=== PATIENT | female | born 1955 | race Caucasian/White ===

== ENCOUNTER → 2018-02-17 | Outpatient (CLI) | payer OTHER ==
--- NOTE | 2018-02-18 15:28 | Pulmonary Function Test ---
DATE OF STUDY: February 17, 2018 Restrictive spirometry. Forced vital capacity 2.7 liters, 77% of predicted. FEV-1 is 1.92 liters, 71% of predicted. FEV1:FVC ratio 71%. Restrictive pattern. FEF 25-75 is 62%. Diffusion capacity is preserved at 25.08, 103% of predicted. Lung volumes maneuver could not be performed. The patient could not maintain a seal on the mouthpiece during the maneuver. IMPRESSION: Restrictive pulmonary disease, which appears mild. Differential diagnosis includes muscular disease, morbid obesity, congestive heart failure, bronchopulmonary disease, pleural disease, chest wall disease, diaphragmatic disease. Clinical correlation required. Job#: [id number]
== END ==
LOC: RESP 09:54
PROVIDERS: ATTEND Psychiatry & Neurology Clinical Neurophysiology
DX: G12.20 Motor neuron disease, unspecified (principal); G12.21 Amyotrophic lateral sclerosis; R06.09 Other forms of dyspnea
CPT/HCPCS: 94010; 94727; 94729

== ENCOUNTER → 2018-05-27 | Outpatient (CLI) | payer OTHER | LOC: DX 12:51 | PROVIDERS: ATTEND Psychiatry & Neurology Clinical Neurophysiology | DX: G12.21 Amyotrophic lateral sclerosis (principal); R13.19 Other dysphagia | CPT/HCPCS: 74230 ==

== ENCOUNTER → 2018-07-30 | Day surgery (SDC) | payer OTHER ==
[~2018-07-30] MED LIST: ATORVASTATIN CA20 MG PO; FENTANYL CITRATE/PF 100MCG/2 ML INJ ONE; FOLIC ACID1 MG PO; HEPARIN SOD (PORCINE) 5,000 UNIT/ML VIAL ONE; HYDROCODONE/APAP 7.5MG-325MG 1 EA TAB ONE; LIDOCAINE HCL 1% LOCAL INJ 20 ML VIAL ONE; MELATONIN3 MG PO; MIDAZOLAM HCL 2 MG/2 ML VIAL ONE; NIFEDIPINE ER30 M1; ONDASETRON; RILUTEK50 MG; ROBINUL; SODIUM CHLORIDE 0.9% 500ML 500 ML ONE; VITAMIN C1000 MG; VITAMIN D32000 UNI1; VITAMIN E400 UNI1; [UNRECOGNIZED DRUG - OTHER]
--- OUTSIDE RECORDS SUMMARY | 2018-07-30 10:07 | XMS REPORT | Clinical Summary ---
Author Author Stuart [facility]oo Organization Stuart [facility] Address Unknown Phone Unavailable Care Team Providers Care Scudding Inspector Name Role Phone Asked, No Pcp PCP Unavailable Allergies No Known Allergies Medications End Date Status Medication Sig Dispensed Refills Start Date Active multivitamin (MULTIPLE Take 1 tablet 0 VITAMIN ESSENTIAL ORAL) by mouth. Active fexofenadine (BASHIR) Take 180 mg 0 180 MG tablet by mouth daily. Active riluzole (RILUTEK) 50 mg Take 50 mg by 0 tablet mouth every 12 (twelve) hours. 06/08/2019 Active glycopyrrolate (ROBINUL) Take 1 tablet 360 tablet 2 1 mg tabletIndications: (1 mg total) 9 Sialorrhea, ALS by mouth 4 (amyotrophic lateral (four) times sclerosis) ([facility]) a day. Active Problems Problem Noted Date Family hx of ALS (amyotrophic lateral sclerosis) 04/15/2018 ALS (amyotrophic lateral sclerosis) Muscle weakness Resolved Problems Problem Noted Date Resolved Date Cranial nerve lesion 04/15/2018 Myasthenia gravis with exacerbation 04/15/2018 Encounters Care Team Description Date Type Specialty Digna Bruner RN ALS (amyotrophic lateral sclerosis) ([facility]) (Primary Dx) 07/29/2018 Orders Only Neurology Briana Saravia MA 07/13/2018 Telephone General Surgery Jaycee Smith RN Sialorrhea (Primary Dx); ALS (amyotrophic lateral sclerosis) ([facility]) 06/08/2018 Orders Only Neurology Kati Caban MD 06/05/2018 Refill Neurology Russel Castañeda MD Familial ALS (amyotrophic lateral sclerosis) ([facility]) (Primary Dx) 04/15/2018 Procedure visit Neurology Pb Mancera, PhD Memory loss; Motor neuron disease ([facility]) 04/14/2018 Office Visit Neuropsychology Russel Castañeda MD Familial ALS (amyotrophic lateral sclerosis) ([facility]) (Primary Dx) 04/14/2018 Procedure visit Neurology Karolyn Pleitez 04/14/2018 Documentation Karolyn Pleitez 04/14/2018 Documentation Russel Castañeda MD 04/13/2018 Hospital Sleep Medicine Encounter Russel Castañeda MD Familial ALS (amyotrophic lateral sclerosis) (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); Dyspnea, unspecified type; Dysarthria; Oropharyngeal dysphagia 04/13/2018 Procedure visit Neurology Russel Castañeda MD Familial ALS (amyotrophic lateral sclerosis) ([facility]) 04/13/2018 Hospital Pulmonology Encounter Alaina Arboleda Amyotrophic lateral sclerosis ([facility]) (Primary Dx) 04/13/2018 Transcribe Sleep Medicine Orders Farrah Fermin, TEXTILE COLORIST FORMULATOR 04/13/2018 Social Work Neurology Farrah Fermin, TEXTILE COLORIST FORMULATOR 04/08/2018 Telephone Neurology Jaycee Smith RN Familial ALS (amyotrophic lateral sclerosis) (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); Dyspnea, unspecified type; Dysarthria; Oropharyngeal dysphagia 04/02/2018 Orders Only Neurology after 07/29/2017 Immunizations Name Dates Previously Given Next Due Pneumococcal Conjugate 04/15/2018 13-[facility]ent Social History Date Tobacco Use Types Packs/Day Years Used Never Assessed Sex Assigned at Date Recorded Not on file Industry Job Start Date Occupation Not on file Not on file Not on file Travel End Travel History Travel Start No recent travel history available. Last Filed Vital Signs Time Taken Vital Sign Reading 04/15/2018 8:23 AM PERSONNEL ADVISER Blood Pressure 166/73 04/15/2018 11:00 AM PERSONNEL ADVISER Pulse 58 04/15/2018 8:23 AM PERSONNEL ADVISER Temperature 37.1 C (98.7 F) 04/15/2018 8:23 AM PERSONNEL ADVISER Respiratory Rate 16 04/15/2018 8:23 AM PERSONNEL ADVISER Oxygen Saturation 100% - Inhaled Oxygen - Concentration 04/13/2018 8:12 AM PERSONNEL ADVISER Weight 64.9 kg (143 lb 1.6 oz) 04/13/2018 8:12 AM PERSONNEL ADVISER Height 167.6 cm (5' 6") 04/13/2018 8:12 AM PERSONNEL ADVISER Body Mass Index 23.1 Plan of Treatment Care Team Description Date Type Specialty Digna Bruner RN 08/06/2018 Multidisciplina Neurology ry Visit Health Maintenance Due Date Last Done Comments CERVICAL CANCER SCREENING 1977 BREAST CANCER SCREENING 2006 COLON CANCER SCREENING 2006 SHINGLES VACCINES (#1) 2006 INFLUENZA VACCINE Completed 03/14/2018 Procedures Comments Procedure Name Priority Date/Time Associated Diagnosis GENERAL SLEEP STUDY Routine 04/14/2018 Amyotrophic lateral 1:18 PM PERSONNEL ADVISER sclerosis (HCC) EMG Routine 04/13/2018 Familial ALS (amyotrophic 1:04 PM PERSONNEL ADVISER lateral sclerosis) (HCC) 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) (HCC) Dyspnea, unspecified type Dysarthria Oropharyngeal dysphagia CRP HIGH SENSITIVITY Routine 04/13/2018 7:22 AM PERSONNEL ADVISER ESTIMATED GFR Routine 04/13/2018 7:22 AM PERSONNEL ADVISER BASIC METABOLIC PANEL Routine 04/13/2018 Familial ALS (amyotrophic 7:22 AM PERSONNEL ADVISER lateral sclerosis) (HCC) 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) (HCC) Dyspnea, unspecified type Dysarthria Oropharyngeal dysphagia HC COMPLETE BLD COUNT Routine 04/13/2018 Familial ALS (amyotrophic W/AUTO DIFF 7:22 AM PERSONNEL ADVISER lateral sclerosis) (HCC) 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) (HCC) Dyspnea, unspecified type Dysarthria Oropharyngeal dysphagia CREATINE KINASE, TOTAL Routine 04/13/2018 Familial ALS (amyotrophic (CPK) 7:22 AM PERSONNEL ADVISER lateral sclerosis) (HCC) 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) (HCC) Dyspnea, unspecified type Dysarthria Oropharyngeal dysphagia FOLATE LEVEL Routine 04/13/2018 Familial ALS (amyotrophic 7:22 AM PERSONNEL ADVISER lateral sclerosis) (HCC) 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) (HCC) Dyspnea, unspecified type Dysarthria Oropharyngeal dysphagia HEPATIC FUNCTION PANEL Routine 04/13/2018 Familial ALS (amyotrophic 7:22 AM PERSONNEL ADVISER lateral sclerosis) (HCC) 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) (HCC) Dyspnea, unspecified type Dysarthria Oropharyngeal dysphagia PROTHROMBIN TIME WITH INR Routine 04/13/2018 Familial ALS (amyotrophic 7:22 AM PERSONNEL ADVISER lateral sclerosis) (HCC) 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) (HCC) Dyspnea, unspecified type Dysarthria Oropharyngeal dysphagia RHEUMATOID FACTOR Routine 04/13/2018 Familial ALS (amyotrophic 7:22 AM PERSONNEL ADVISER lateral sclerosis) (HCC) 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) Dyspnea, unspecified type Dysarthria Oropharyngeal dysphagia THYROID STIMULATING Routine 04/13/2018 Familial ALS (amyotrophic HORMONE 7:22 AM PERSONNEL ADVISER lateral sclerosis) (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) Dyspnea, unspecified type Dysarthria Oropharyngeal dysphagia VITAMIN D 25 HYDROXY Routine 04/13/2018 Familial ALS (amyotrophic LEVEL 7:22 AM PERSONNEL ADVISER lateral sclerosis) (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) Dyspnea, unspecified type Dysarthria Oropharyngeal dysphagia VITAMIN B12 LEVEL Routine 04/13/2018 Familial ALS (amyotrophic 7:22 AM PERSONNEL ADVISER lateral sclerosis) (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) Dyspnea, unspecified type Dysarthria Oropharyngeal dysphagia HIV AG/AB COMBINATION Routine 04/13/2018 Familial ALS (amyotrophic 7:22 AM PERSONNEL ADVISER lateral sclerosis) (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) Dyspnea, unspecified type Dysarthria Oropharyngeal dysphagia SPIROMETRY, MIPS/MEPS Routine 04/13/2018 Familial ALS (amyotrophic 7:21 AM PERSONNEL ADVISER lateral sclerosis) ([facility]) after 07/29/2017 Results * General sleep study (04/14/2018 1:18 PM PERSONNEL ADVISER) Narrative Performed At * EMG general request (04/13/2018 1:04 PM PERSONNEL ADVISER) Impressions Performed At Ms. Grissom complains of progressive dysarthria, weakness in her left arm and diffuse muscle twitching. Ms. Grissom is being evaluated for motor neuron disease. 1) Left median, ulnar and bilateral phrenic, peroneal and tibial motor latencies, amplitudes and velocities are normal. 2) Repetitive stimulations are normal, as noted above. 3) Left median palmar, median digital, ulnar and bilateral sural sensory responses are normal. 4) Intramuscular recordings of the left arm, bilateral legs, bilateral thoracic paraspinous (level T3-T11) and tongue (genioglossus) muscles suggest acute and chronic denervation as noted above. 5) Intramuscular recordings of the bilateral diaphragm are normal, without denervation. The study suggests diffuse motor neuron disease. Ayo Felix M.D. Narrative Performed At NERVE CONDUCTION AND ELECTROMYOGRAPHY REPORT Neurological [place], [facility]; [place], [place] [address]; Name: Ana Rosa Grissom Date of Procedure: April 13, 2018Location: Sex: Female Date of :57 Referring Physician: Russel Castañeda M.D. FAX: Patient is 5 6 ; 142 lbs.; RL 30.0 C; LA 34.3 C; LL 30.0 C\\ Nerve Conduction(Latencies in msec, Amp. (Motor mV; Sensory uV, Dist. cm, Velocity Right Motor NervesDist. Lat. Prox lat. D. amp. P. Amp. Dist. Velocity Right Peroneal4.311.36.1 5.633.4 47.1 Right Tibial4.412.612.0 9.838.7 47.3 Right Phrenic6.81.0 Right Sensory Nerves Dist. Lat. Prox lat. Dist. amp. Prox Amp. Distance Velocity Right Sural3.9 22.7 14.0 Left Motor Nerves Dist. Lat. Prox lat. D. amp. P. Amp.Dist. Velocity Left Median3.97.84.7 4.020.7 54.0 Left Ulnar (below elb) 2.75.76.1 6.115.0 50.0 Left Peroneal3.811.33.2 2.334.8 46.4 Left Tibial4.013.410.7 8.638.2 40.5 Left Phrenic6.71.0 Left Sensory Nerves Dist. Lat. Prox lat. Dist. amp. Prox Amp. Distance Velocity Left Median Palmar 2.0 140.0 8.0 Left Median Digital 2.8 38.3 13.0 Left Ulnar2.5 27.3 11.0 Left Sural3.8 16.3 14.0 Electromyography (Motor Unit in mV; H=High; L=Low; P=Polyphasic; NS=Non-specific) Right LegFibs. Pos. Waves Fasc. PolyphasiaMotor UnitsRecruitment Vas. Medialiswnl wnlwnl wnlwnlNS Ant. TibialisR Rwnl 20HPwnl-1 Peroneus Longus R Rwnl 20HPwnl-1 Gastronemiuswnl wnlwnl wnlwnlwnl Ext. Dig. Brevis R Rwnl 20HPwnl-1 Left ArmFibs. Pos. Waves Fasc. PolyphasiaMotor UnitsRecruitment Deltoid R Rwnl 20HPwnlNS Biceps R Rwnl 20HPwnl-1 Triceps R Rwnl 20HPwnl-1 Brachioradialis 1 1wnl 30HPwnl-2 Ext. Dig. Comm. 1 1wnl 30HPwnl-2 lst D. Interosseous 1 1wnl 30HPwnl-2 DiaphragmFibs. Pos. Waves Fasc. PolyphasiaMotor Units RecruitmentRight wnl wnlwnl wnlwnlwnl Left wnl wnlwnl wnlwnlwnl Left LegFibs. Pos. Waves Fasc. PolyphasiaMotor UnitsRecruitment Vas. Medialiswnl wnlwnl wnlwnlNS Ant. TibialisR Rwnl 20HPwnl-1 Peroneus Longus R Rwnl 20HPwnl-1 Gastronemiuswnl wnlwnl wnlwnlwnl Ext. Dig. Brevis R Rwnl 20HPwnl-1 Thoracic Paraspinous (T3-T11 level): Right: R Rwnl wnlwnlwnl Left: R Rwnl wnlwnlwnl Genioglossus (tongue): Left: 1 1wnl wnlwnl-2 Repetitive stimulations: Repetitive stimulations at 3 Hz. of the left ulnar nerve (recording from ADM), before and after exercise, are normal, without significant increment or decrement in the response: At rest: 5.2% increment; immediately post-exercise: 7.6% increment; one minute post-exercise: 8.6% increment; two minutes post-exercise: 5.4% increment; three minutes post-exercise: 4.4% increment. Repetitive stimulations at 3 Hz. of the left XI nerve (recording from trapezius), before and after exercise, are normal, without significant increment or decrement in the response: At rest: 2.4% increment; immediately post-exercise: 4.0% decrement; one minute post-exercise: 5.7% decrement; two minutes post-exercise: 2.5% decrement; three minutes post-exercise: 9.0% decrement. * Syphilis treponemal IgG (04/13/2018 7:22 AM PERSONNEL ADVISER) Syphilis treponemal IgG Non-reactiveComment: Non-reactive [facility] Non-reactive: No serological HOSPITAL evidence of Syphilis infection Specimen Serum Performing Organization Address [facility] [place], [place] Phone Number [facility] [place] [address] PATHOLOGY AND [facility] MEDICINE [address] * Estimated GFR (04/13/2018 7:22 AM PERSONNEL ADVISER) Estimated GFR 76 mL/min/1.73 m2 [facility] Comment: HOSPITAL CatergoryUnitsInte rpretation G1 >=90 Normal or high G2 60-89Mildly decreased [id number] Mildly to moderately decreased [id number] Moderately to severely decreased G4 15-29Severely decreased G5 <15Kidney failure The eGFR was calculated using the Chronic Kidney Disease Epidemiology Collaboration (CKD-EPI) equation. Interpretation is based on recommendations of the National Kidney Foundation-Kidney Disease Outcomes Quality Initiative (NKF-KDOQI) published in 2014. Specimen Plasma specimen Performing Organization Address City/[facility] Phone Number [facility] [place] [address] PATHOLOGY AND [facility] [address] * HIV Ag/Ab combination (04/13/2018 7:22 AM PERSONNEL ADVISER) HIV Ag/Ab combination Non-reactive Non-reactive [facility] Specimen Blood Performing Organization Address [facility] Phone Number [facility] [place] [address] PATHOLOGY AND GENOMIC MEDICINE [address] * HTLV I/II Ab with reflex to confirmation (04/13/2018 7:22 AM PERSONNEL ADVISER) HTLV I/II Ab Negative Negative [facility] Comment: Based on the non-reactive anti-HTLV JACE screen, the HTLV Western Blot is not indicated and therefore not performed. INTERPRETIVE INFORMATION:HTLV I/II Antibodies w/Reflex to Confirm This assay should not be used for blood donor screening, associated re-entry protocols, or for screening Human Cell, Tissues and Cellular and Tissue-Based Products (HCT/P). Performed by [facility], [address] [place] [address] [email or web address], Bentley Sheffield MD - Lab. Director Specimen Serum Performing Organization Address [facility] Phone Number [facility] [address] [place] [address] [facility] [address] [place] [address] * B. burgdorferi Abs total, serum (04/13/2018 7:22 AM PERSONNEL ADVISER) B. burgdorferi antibodies 0.61 0.00 - 1.20 [facility] Comment: INTERPRETIVE INFORMATION: Borrelia Burgdorferi Abs,Total by JACE 0.99 CHELSIE or Less: ...... Negative: Antibody to B. burgdorferi not detected. 1.00 - 1.20 CHELSIE......... Equivocal: Repeat testing in 10-14 days may be helpful. 1.21 CHELSIE or Greater: ... Positive: Probable presence of antibody to B. burgdorferi detected. Performed by [facility], [address] [place] [address] [email or web address], Bentley Sheffield MD - Lab. Director Specimen Serum Performing Organization Address [facility] Phone Number [facility] [address] [facility] [address] [place] [address] * Vitamin D 25 hydroxy level (04/13/2018 7:22 AM PERSONNEL ADVISER) Vitamin D, 25-hydroxy 28.0 (L) 30.0 - 150.0 ng/mL [facility] Comment: HOSPITAL This assay reports the sum of 25-hydroxy vitamin D3 and 25-hydroxy vitamin D2. Reference range: 0-17 years: Deficiency: less than 20ng/mL Optimum level: greater than or equal to 20 ng/mL. 18 years and older: Deficiency: less than 20ng/mL Insufficiency: 20-29 ng/mL Optimum Level: 30-80 ng/mL The assay reportable range is 3.4155.9 ng/mL. Levels higher than 150 ng/mL may be associated with toxicity. If toxicity is clinically suspected and the reported result is >155.9 ng/mL,contact lab for alternative methods to obtain a definitivelevel. If separate quantitation of 25-hydroxy vitamin D3 and 25-hydroxy vitamin D2 is needed, please contact lab for alternative methods. Specimen Blood Performing Organization Address [facility]/Zipcode Phone Number [facility] DEPARTMENT OF [address] [place] [address] PATHOLOGY AND GENOMIC MEDICINE [address] * Partial thromboplastin time, activated (04/13/2018 7:22 AM PERSONNEL ADVISER) PTT 31.2 23.0 - 36.0 sec [facility] Comment: [facility] PTT therapeutic range for unfractionated heparin is 61.0-112.0 seconds which corresponds to Anti-Xa 0.3-0.7 U/ml. Specimen Blood Performing Organization Address [facility] Phone Number [facility] [place] [place] [address] PATHOLOGY AND [facility] [address] * Prothrombin time with INR (04/13/2018 7:22 AM PERSONNEL ADVISER) Prothrombin time 12.6 11.5 - 14.5 sec [facility] INR 1.0 [facility] Comment: [facility] The International Normalized Ratio (INR) is a therapeutic monitoring tool for patients who are stable on oral anticoagulant therapy. An INR of 2.0-3.0 is suggested for deep vein thrombosis/pulmonary embolism. Specimen Blood Performing Organization Address [facility]/Zipcode Phone Number [facility] [place] [place] [address] PATHOLOGY AND [facility] [address] * CBC with platelet and differential (04/13/2018 7:22 AM PERSONNEL ADVISER) WBC 4.29 (L) 4.50 - 11.00 k/uL [facility] RBC 4.54 4.20 - 5.50 m/uL [facility] HGB 13.6 12.0 - 16.0 g/dL [facility] HCT 42.4 37.0 - 47.0 % [facility] MCV 93.4 82.0 - 100.0 fL [facility] MCH 30.0 27.0 - 34.0 pg [facility] MCHC 32.1 31.0 - 37.0 g/dL [facility] RDW - SD 45.4 37.0 - 55.0 fL [facility] MPV 11.3 8.8 - 13.2 fL [facility] Platelet count 217 150 - 400 k/uL [facility] Nucleated RBC 0.00 /100 WBC [facility] Neutrophils 59.5 39.0 - 69.0 % [facility] Lymphocytes 30.5 25.0 - 45.0 % [facility] Monocytes 7.7 0.0 - 10.0 % [facility] Eosinophils 1.4 0.0 - 5.0 % [facility] Basophils 0.7 0.0 - 1.0 % [facility] Immature granulocytes 0.2Comment: "Immature 0.0 - 1.0 % [facility] granulocytes" (promyelocytes, HOSPITAL myelocytes, metamyelocytes) Specimen Blood Performing Organization Address City/[facility] [place] [address] PATHOLOGY AND GENOMIC MEDICINE [address] * Rheumatoid factor (04/13/2018 7:22 AM PERSONNEL ADVISER) Rheumatoid factor <10 0 - 13 IU/mL [facility] Specimen Plasma specimen Performing Organization Address City/[facility] [place] [address] PATHOLOGY AND GENOMIC MEDICINE [address] * CRP high sensitivity (04/13/2018 7:22 AM PERSONNEL ADVISER) CRP, high sensitivity 1.04 mg/L [facility] Comment: HOSPITAL Please note this test is different from the C-Reactive Protein (CRP) assay. CRP is a nonspecific marker of inflammation and its levels rise in the presence of conditions such as infection and inflammatory disorders. Persistent low levels of CRP can be measured with a high-sensitivity assay (hsCRP) andare associated with increased risks for atherosclerotic diseases. High-Sensitivity CRP (hsCRP) results are used to assign risk for stroke, acute myocardial infarction and peripheral vascular disease as follows: Low risk: < 1.00 mg/L Average risk: 1.00 - 3.00 mg/L High risk: > 3.00 - 10.00 mg/L Indeterminate: > 10.00 mg/L * *May be indicative of another source of inflammation or infection Specimen Plasma specimen Performing Organization Address City/[facility] Phone Number [facility] [place] [address] PATHOLOGY AND GENOMIC MEDICINE [address] * Thyroid stimulating hormone (04/13/2018 7:22 AM PERSONNEL ADVISER) TSH 4.21 (H) 0.27 - 4.20 uIU/mL [facility] Specimen Plasma specimen Performing Organization Address [facility] [place] [place] Phone Number [facility] [place] [address] PATHOLOGY AND GENOMIC MEDICINE [address] * Serum electrophoresis (04/13/2018 7:22 AM PERSONNEL ADVISER) Protein 7.0 6.3 - 8.3 g/dL [facility] Comment: HOSPITAL 4.6-7.0 g/dL 1 week 4.4-7.6 g/dL 7 months-1year 5.1-7.3 g/dL 1-2 years5.6-7 .5 g/dL >3 years6.0-8 .0 g/dL 18-150 6.3-8.3 g/dL SPE albumin 4.82 4.00 - 5.30 g/dL [facility] SPE alpha 1 0.15 0.10 - 0.25 g/dL [facility] SPE alpha 2 0.67 0.58 - 0.84 g/dL [facility] SPE beta 0.72 0.50 - 1.10 g/dL [facility] SPE gamma 0.63 0.60 - 1.30 g/dL [facility] SPE extended See CommentComment: A normal [facility] interpretation serum protein study. [facility] SPE interpretation See CommentComment: Lori [facility] Fiore MD; [facility] [place], PhD; Giovanni Jennings MD, PhD Specimen Serum Performing Organization Address City/[facility] Phone Number [facility] [place] [address] PATHOLOGY AND GENOMIC MEDICINE [address] * Folate level (04/13/2018 7:22 AM PERSONNEL ADVISER) Folate >20.0 4.8 - 24.2 ng/mL [facility] Specimen Serum Performing Organization Address City/[facility] Phone Number [facility] [place] [address] PATHOLOGY AND GENOMIC MEDICINE [address] * Vitamin B12 level (04/13/2018 7:22 AM PERSONNEL ADVISER) Vitamin B12 478 211 - 946 pg/mL [facility] Comment: HOSPITAL Significant overlap exists between normal and deficiency states. However, most patients with deficiencies will have Serum B12 <200 pg/mL. Specimen Serum Performing Organization Address [facility] Phone Number [facility] [place] [address] PATHOLOGY AND GENOMIC MEDICINE [address] * Creatine kinase, total (CPK) (04/13/2018 7:22 AM PERSONNEL ADVISER) Creatine kinase 69 26 - 192 U/L [facility] Specimen Plasma specimen Performing Organization Address City/[facility] [place] [place] Phone Number [facility] [place] [address] PATHOLOGY AND GENOMIC MEDICINE [address] * Hepatic function panel (04/13/2018 7:22 AM PERSONNEL ADVISER) Albumin 4.1 3.5 - 5.0 g/dL [facility] Total bilirubin 0.4 0.0 - 1.2 mg/dL [facility] Bilirubin direct <0.2 0.0 - 0.3 mg/dL [facility] Alkaline phosphatase 95 35 - 104 U/L [facility] Protein 7.4 6.3 - 8.3 g/dL [facility] Comment: HOSPITAL [place] 4.6-7.0 g/dL 1 week 4.4-7.6 g/dL 7 months-1year 5.1-7.3 g/dL 1-2 years5.6-7 .5 g/dL >3 years6.0-8 .0 g/dL 18-150 6.3-8.3 g/dL ALT 19 5 - 50 U/L [facility] AST 24 10 - 35 U/L [facility] Specimen Plasma specimen Performing Organization Address [facility] Phone Number [facility] DEPARTMENT OF [address] [place] [address] PATHOLOGY AND GENOMIC MEDICINE [address] * Lipid panel (04/13/2018 7:22 AM PERSONNEL ADVISER) Cholesterol 227 (H) <200 mg/dL [facility] Triglycerides 99 <150 mg/dL [facility] HDL cholesterol 61 >40 mg/dL [facility] LDL cholesterol 161 (H)Comment: Result <100 mg/dL [facility] obtained by direct [facility] measurement Lipid panel SeeBelow [facility] interpretation Comment: HOSPITAL Total Cholesterol (mg/dL) <200 Desirable 200-239Borderline -high >=240High Triglycerides (mg/dL) <150 Normal 150-199Borderline -high 200-499High >=500Very high HDL Cholesterol (mg/dL) <40Low (male) <40Low (female) LDL Cholesterol (mg/dL) <100 Optimal 100-129Near or above optimal 130-159Borderline -high 160-189High >=190Very high Risk Catergories that modify LDL goals. Risk Catergories LDL goal (mg/dL) CHD and CHD risk equivalent<100 (10-year risk >20%) Multiple (2+) risk factors <130 (10-year risk=<20%) 0-1 risk factors <160 (<10-year risk) Defining levels of lipids in metabolic syndrome Triglycerides >=150 mg/dL HDL Cholesterol Men <40 mg/dL Women <40 mg/dL Non-HDL cholesterol is a second target for therapy in persons with high triglycerides (>=200 mg/dL) Specimen Plasma specimen Performing Organization Address City/[facility] Phone Number [facility] DEPARTMENT OF [address] [place] [address] PATHOLOGY AND GENOMIC MEDICINE [place] [id number] [address] * Basic metabolic panel (04/13/2018 7:22 AM PERSONNEL ADVISER) Sodium 142 135 - 148 mEq/L [facility] Potassium 4.1 3.5 - 5.0 mEq/L [facility] Chloride 106 98 - 112 mEq/L [facility] CO2 21 (L) 24 - 31 mEq/L [facility] Anion gap 15@ANIO 7 - 15 mEq/L [facility] BUN 11 8 - 23 mg/dL [facility] Creatinine 0.83 0.50 - 0.90 mg/dL [facility] Glucose 101 (H) 65 - 99 mg/dL [facility] Calcium 10.2 8.8 - 10.2 mg/dL [facility] Specimen Plasma specimen Performing Organization Address City/State/Zipcode Phone Number [facility] DEPARTMENT OF [address] [place] [address] PATHOLOGY AND GENOMIC MEDICINE [address] * Spirometry, MIPS/MEPS (04/13/2018 7:21 AM PERSONNEL ADVISER) FEV1 Pre 2.17 2.02 - 3.23 L [facility] FEV1/FVC % Pre 60.81 68.05 - 87.64 % [facility] FVC Pre 3.56 2.69 - 4.11 L [facility] PEF Pre 3.21 4.63 - 8.16 L/s [facility] FEF 25-75% Pre 1.06 1.09 - 3.64 L/s [facility] FEV1 Predicted 2.62 [facility] FEV1 LLN 2.02 [facility] FEV1 % Pre of Predicted 82.5 % [facility] FVC Predicted 3.40 [facility] FVC LLN 2.69 [facility] FVC % Pre of Predicted 104.7 % [facility] FEV1/FVC % Predicted 78 [facility] FEV1/FVC % LLN 68 [facility] FEV1/FVC % Pre of 78.1 % [facility] Predicted FEF 25-75% Predicted 2.36 [facility] FEF 25-75% LLN 1.09 [facility] FEF 25-75% % Pre of 44.6 % [facility] Predicted PEF Predicted 6.39 [facility] PEF LLN 4.63 [facility] PEF % Pre of Predicted 50.2 % [facility] MIP Predicted 55.51 [facility] MIP LLN 24.88 [facility] MEP Predicted 69.52 [facility] MEP LLN 25.12 [facility] MVV Predicted 96 [facility] MVV LLN 81 [facility] Narrative Performed At Performing Organization Address City/State/Zipcode Phone Number [facility] [address] [place] [address] after 07/29/2017 Insurance Payer Benefit Subscriber ID Type Phone Address Plan / Group AETNA AETNA xxxxxxxxxx HMO HMO,POS,EP O, MC/EC Advance Directives Patient has advance care planning documents on file. For more information, molina ramon contact: Theo Saunders [phone] [place] [address]
--- OUTSIDE RECORDS SUMMARY | 2018-07-30 10:07 | XMS REPORT ---
Author Author [facility] Address Unknown Phone Unavailable Care Team Providers Care Bag Cutter Name Role Phone FRANKLYN TOLBERT Unavailable Unavailable Payers Payer Name Policy Type Policy Number Effective Date Expiration Date Problems This patient has no known problems. Allergies, Adverse Reactions, Alerts This patient has no known allergies or adverse reactions. Medications This patient has no known medications. Results Test Description Test Time Test Comments Text Results Atomic Results Result Comments MODIFIED BA. SWALLOW 2018-05-31 09:04:00 [place] [address] Patient Name: NAN BOLDEN MR #: [id number] : 1955 Age/Sex: 62/F Req #: [id number] [facility] Physician: Ordered by: FRANKLYN TOLBERT MD Report #: [id number] Location: DX Room/Bed: Procedure: [id number] DX/MODIFIED BA. SWALLOW Exam Date: 05/27/18 Exam Time: 1300 REPORT STATUS: Signed MODIFIED BARIUM SWALLOW Reason for examination: A LS. Dysphagia. Comparison: None DISCUSSION: This examination was conducted in conjunction with speech pathologist. Patient was given, by mouth, numerous consistencies of barium. Anterior spillage with all liquid trials, anterior spillage after swallow, poor saliva management. Slow mastication. Laryngeal penetration with large cup sip only. Unable to draw from straw. No aspiration seen. Fluoro Time: 1.3 minutes DAP: 1.61 Gy*cm IMPRESSION: Episodes of penetration. Please see speech pathology report for detailed description and recommendations. Signed by: Dr. Abel Moore M.D. on 05/31/2018 9:09 AM Dictated By: ABEL MOORE MD, MD 8 Transcribed By: ECHO on 05/31/18908 COPY TO: FRANKLYN TOLBERT MD
[2018-07-30 11:04] LABS: BASOPHILS % 0.6 % (0.0-1.0); EOSINOPHILS # (AUTO) 0.1 (0.0-0.4); EOSINOPHILS % 1.3 % (0.0-6.0); HEMATOCRIT 39.3 % (34.2-44.1); HEMOGLOBIN 12.9 g/dL (12.0-16.0); LYMPHOCYTES # (AUTO) 1.5 (1.0-3.2); LYMPHOCYTES % 33.1 % (18.0-39.1); MEAN CORPUSCULAR HEMOGLOBIN 30.9 pg (28-32); MEAN CORPUSCULAR HGB CONC 32.8 g/dL (31-35); MONOCYTES # (AUTO) 0.3 (0.2-0.8); MONOCYTES % 6.5 % (4.4-11.3); NEUTROPHILS # (AUTO) 2.7 (2.1-6.9); NEUTROPHILS % 58.3 % (38.7-80.0); PLATELET COUNT 244 x10e3/uL (140-360); RED BLOOD COUNT 4.18 x10e6/uL (3.6-5.1); RED CELL DISTRIBUTION WIDTH 12.5 % (11.7-14.4)
[2018-07-30 11:32] LABS: BLOOD UREA NITROGEN 12 mg/dL (7-26); BUN/CREATININE RATIO 16 (6-25); CALCIUM 9.5 mg/dL (8.4-10.2); CARBON DIOXIDE 22 mmol/L (22-29); CHLORIDE 112 mmol/L (98-107); CREATININE, SERUM 0.77 mg/dL (0.57-1.11); EST GLOMERULAR FILTRATION RATE > 60 ML/MIN (60-); GLUCOSE 97 mg/dL (74-118); SODIUM 141 mmol/L (136-145)
--- NOTE | 2018-07-30 11:37 | Diagnostic Imaging Report ---
EXAMINATION: CHEST 2 VIEWS INDICATION: Pre-op. COMPARISON: None FINDINGS: TUBES and LINES: None. LUNGS: Lungs are well inflated. Lungs are clear. There is no evidence of pneumonia or pulmonary edema. PLEURA: No pleural effusion or pneumothorax. HEART AND MEDIASTINUM: The cardiomediastinal silhouette is unremarkable. BONES AND SOFT TISSUES: No acute osseous lesion. Soft tissues are unremarkable. UPPER ABDOMEN: No free air under the diaphragm. IMPRESSION: No acute radiographic abnormality. Signed by: Dr. Amber Patel MD on 07/30/2018 11:33 AM
[2018-07-30 14:45] VITALS: BP 120/78
--- NOTE | 2018-07-30 15:52 | Operative Report ---
DATE OF PROCEDURE: 07/30/2018 SURGEON: Ronni Quintanilla MD PREOPERATIVE DIAGNOSIS: Amyotrophic lateral sclerosis with need of IV access. POSTOPERATIVE DIAGNOSIS: Amyotrophic lateral sclerosis with need of IV access. OPERATION PERFORMED: Placement of left subclavian venous access port under C-arm guidance. ANESTHESIA: Local 1% Xylocaine and MAC. COMPLICATIONS: None. ESTIMATED BLOOD LOSS: Minimal. DESCRIPTION OF PROCEDURE: With the patient lying in bed in the supine position under good IV sedation, the left chest and neck were prepped with Betadine solution and draped in the usual manner. The patient was placed in the Trendelenburg position and the subclavian region was infiltrated with 1% Xylocaine solution. Standard left subclavian venipuncture was performed without any difficulty and a guidewire was advanced into the central venous position. Using the C-arm, the tip of the guidewire was confirmed to be at the level of the superior vena cava and the left lung was fully expanded. A pocket was then created in the left anterior chest to accept the reservoir and the catheter was then threaded to the subclavian position. The reservoir was anchored to the anterior chest wall with interrupted sutures of 2-0 silk and the reservoir and catheter were fully heparinized and the catheter was cut to the appropriate length. The peel-away sheath introducer was then placed over the guidewire. The guidewire was removed and the catheter was threaded into central venous position. The peel-away sheath was then removed. There was good blood return and the reservoir and catheter were then fully heparinized. Using the C-arm, the left lung was found to be fully expanded and the tip of the catheter was at the level of the superior vena cava. The wounds were then closed in layers. The subcutaneous tissue was approximated with 3-0 and 4-0 Vicryl and the skin was closed with subcuticular 5-0 Vicryl. Benzoin, Steri-Strips and dressings were applied. The sponge, lap, and needle count was correct. The patient tolerated the procedures well and returned to the recovery room in stable condition. MD NOEL Field/MODL /[id number]
== END | disposition home or self-care (01) ==
LOC: OR 10:02
PROVIDERS: ATTEND Surgery
DX: G12.21 Amyotrophic lateral sclerosis (principal); Z45.2 Encounter for adjustment and management of vascular access device; I10 Essential (primary) hypertension; Z87.891 Personal history of nicotine dependence
CPT/HCPCS: 36561; C1751; 36415; 71046; 77001; 80048; 85025; 93005; J1644; J2001; J2250; J7040

== ENCOUNTER 2018-10-27 06:06 | Observation (INO) | payer OTHER ==
[~2018-10-27] VITALS: Ht 167.6 cm; Wt 55.5 kg
[~2018-10-27 06:06] MED LIST changes: -FENTANYL CITRATE/PF 100MCG/2 ML INJ ONE; -HEPARIN SOD (PORCINE) 5,000 UNIT/ML VIAL ONE; -HYDROCODONE/APAP 7.5MG-325MG 1 EA TAB ONE; -LIDOCAINE HCL 1% LOCAL INJ 20 ML VIAL ONE; -MIDAZOLAM HCL 2 MG/2 ML VIAL ONE; -SODIUM CHLORIDE 0.9% 500ML 500 ML ONE; -[UNRECOGNIZED DRUG - OTHER]; +[UNRECOGNIZED DRUG - OTHER] IV
--- OUTSIDE RECORDS SUMMARY | 2018-10-27 06:09 | XMS REPORT | Clinical Summary ---
Author Author [facility] Organization [facility] Address Unknown Phone Unavailable Care Team Providers Care Lawn Service Manager Name Role Phone Asked, No Pcp PCP Unavailable Allergies No Known Allergies Medications End Date Status Medication Sig Dispensed Refills Start Date Active fexofenadine (BASHIR) Take 180 mg 0 180 MG tablet by mouth daily. 06/08/2019 Active glycopyrrolate (ROBINUL) Take 1 tablet 360 tablet 2 1 mg tabletIndications: (1 mg total) 9 Sialorrhea, ALS by mouth 4 (amyotrophic lateral (four) times sclerosis) (HCC) a day. Active atorvastatin (LIPITOR) 40 TK 1 T PO HS 3 MG tablet 9 Active NIFEdipine XL (PROCARDIA TK 1 T PO HS 3 XL) 30 MG 24 hr tablet 9 Active ondansetron (ZOFRAN) 4 MG TK 2 TS PO Q 1 tablet 6 TO 8 H PRF 9 NAUSEA Active melatonin 10 mg capsule Take by 0 mouth. Active FOLIC ACID ORAL Take 8 mg by 0 mouth 2 (two) times a day. Active cholecalciferol, vitamin Take 2,000 0 D3, (VITAMIN D3) 1,000 Units by unit capsule mouth daily. Active ascorbic acid, vitamin C, Take 1,000 mg 0 (vitamin C) 1000 MG by mouth 2 tablet (two) times a day. Active riluzole (RILUTEK) 50 mg Take 50 mg by 0 tablet mouth every 12 (twelve) hours. 08/06/2018 Discontinued multivitamin (MULTIPLE Take 1 tablet 0 VITAMIN ESSENTIAL ORAL) by mouth. 08/06/2018 Discontinued riluzole (RILUTEK) 50 mg Take 50 mg by 0 tablet mouth every 12 (twelve) hours. Active Problems Problem Noted Date Family hx of ALS (amyotrophic lateral sclerosis) 04/15/2018 ALS (amyotrophic lateral sclerosis) Muscle weakness Resolved Problems Problem Noted Date Resolved Date Cranial nerve lesion 04/15/2018 Myasthenia gravis with exacerbation 04/15/2018 Encounters Care Team Description Date Type Specialty Russel Castañeda MD ALS (amyotrophic lateral sclerosis) ([facility]) 08/06/2018 Lab Lab Russel Castañeda MD Toennis, Karen, RN ALS (amyotrophic lateral sclerosis) ([facility]) (Primary Dx) 08/06/2018 Multidisciplina Neurology ry Visit Digna Bruner RN ALS (amyotrophic lateral sclerosis) ([facility]) (Primary Dx) 07/29/2018 Orders Only Neurology Briana Saravia MA 07/13/2018 Telephone General Surgery Jaycee Smith RN Sialorrhea (Primary Dx); ALS (amyotrophic lateral sclerosis) ([facility]) 06/08/2018 Orders Only Neurology Kati Caban MD 06/05/2018 Refill Neurology Russel Castañeda MD Familial ALS (amyotrophic lateral sclerosis) ([facility]) (Primary Dx) 04/15/2018 Procedure visit Neurology Pb Mancera, PhD Memory loss; Motor neuron disease ([facility]) 04/14/2018 Office Visit Neuropsychology Russel Castañeda MD Familial ALS (amyotrophic lateral sclerosis) ([facility]) (Primary Dx) 04/14/2018 Procedure visit Neurology Karolyn Pleitez 04/14/2018 Documentation Karolyn Pleitez 04/14/2018 Documentation Russel Castañeda MD 04/13/2018 Hospital Sleep Medicine Encounter Russel Castañeda MD Familial ALS (amyotrophic lateral sclerosis) ([facility]); 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) ([facility]); Dyspnea, unspecified type; Dysarthria; Oropharyngeal dysphagia 04/13/2018 Procedure visit Neurology Russel Castañeda MD Familial ALS (amyotrophic lateral sclerosis) ([facility]) 04/13/2018 Hospital Pulmonology Encounter Alaina Arboleda Amyotrophic lateral sclerosis ([facility]) (Primary Dx) 04/13/2018 Transcribe Sleep Medicine Orders Farrah Fermin, AVIONICS ENGINEER 04/13/2018 Social Work Neurology Farrah Fermin, AVIONICS ENGINEER 04/08/2018 Telephone Neurology Jaycee Smith RN Familial ALS (amyotrophic lateral sclerosis) ([facility]) (Primary Dx); 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 Last Filed Vital Signs Time Taken Vital Sign Reading 08/06/2018 9:48 AM CDT Blood Pressure 145/77 08/06/2018 9:48 AM CDT Pulse 67 08/06/2018 9:48 AM CDT Temperature 35.7 C (96.2 F) 08/06/2018 9:48 AM CDT Respiratory Rate 16 04/15/2018 8:23 AM TELEPHONE INFORMATION SUPERVISOR Oxygen Saturation 100% - Inhaled Oxygen - Concentration 08/06/2018 9:48 AM CDT Weight 59.3 kg (130 lb 11.2 oz) 08/06/2018 9:48 AM CDT Height 167.6 cm (5' 6") 08/06/2018 9:48 AM CDT Body Mass Index 21.1 Plan of Treatment Care Team Description Date Type Specialty Digna Bruner RN 12/03/2018 Multidisciplina Neurology ry Visit Health Maintenance Due Date Last Done Comments BREAST CANCER SCREENING 2006 COLONOSCOPY SCREENING 2006 SHINGLES VACCINES (#1) 2006 INFLUENZA VACCINE 12/02/2018 03/14/2018 Procedures Comments Procedure Name Priority Date/Time Associated Diagnosis HEPATIC FUNCTION PANEL Routine 08/06/2018 ALS (amyotrophic lateral 7:25 AM CDT sclerosis) ([facility]) GENERAL SLEEP STUDY Routine 04/14/2018 Amyotrophic lateral 1:18 PM TELEPHONE INFORMATION SUPERVISOR sclerosis ([facility]) EMG Routine 04/13/2018 Familial ALS (amyotrophic 1:04 PM TELEPHONE INFORMATION SUPERVISOR lateral sclerosis) ([facility]) 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) ([facility]) Dyspnea, unspecified type Dysarthria Oropharyngeal dysphagia CRP HIGH SENSITIVITY Routine 04/13/2018 7:22 AM TELEPHONE INFORMATION SUPERVISOR ESTIMATED GFR Routine 04/13/2018 7:22 AM TELEPHONE INFORMATION SUPERVISOR BASIC METABOLIC PANEL Routine 04/13/2018 Familial ALS (amyotrophic 7:22 AM TELEPHONE INFORMATION SUPERVISOR lateral sclerosis) (HCC) 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) (HCC) Dyspnea, unspecified type Dysarthria Oropharyngeal dysphagia HC COMPLETE BLD COUNT Routine 04/13/2018 Familial ALS (amyotrophic W/AUTO DIFF 7:22 AM TELEPHONE INFORMATION SUPERVISOR lateral sclerosis) (HCC) 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) (HCC) Dyspnea, unspecified type Dysarthria Oropharyngeal dysphagia CREATINE KINASE, TOTAL Routine 04/13/2018 Familial ALS (amyotrophic (CPK) 7:22 AM TELEPHONE INFORMATION SUPERVISOR lateral sclerosis) (HCC) 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) (HCC) Dyspnea, unspecified type Dysarthria Oropharyngeal dysphagia FOLATE LEVEL Routine 04/13/2018 Familial ALS (amyotrophic 7:22 AM TELEPHONE INFORMATION SUPERVISOR lateral sclerosis) (HCC) 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) (HCC) Dyspnea, unspecified type Dysarthria Oropharyngeal dysphagia HEPATIC FUNCTION PANEL Routine 04/13/2018 Familial ALS (amyotrophic 7:22 AM TELEPHONE INFORMATION SUPERVISOR lateral sclerosis) (HCC) 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) (HCC) Dyspnea, unspecified type Dysarthria Oropharyngeal dysphagia HTLV I/II AB WITH REFLEX Routine 04/13/2018 Familial ALS (amyotrophic TO CONFIRMATION 7:22 AM TELEPHONE INFORMATION SUPERVISOR lateral sclerosis) (HCC) 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) (HCC) Dyspnea, unspecified type Dysarthria Oropharyngeal dysphagia PROTHROMBIN TIME WITH INR Routine 04/13/2018 Familial ALS (amyotrophic 7:22 AM TELEPHONE INFORMATION SUPERVISOR lateral sclerosis) (HCC) 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) (HCC) Dyspnea, unspecified type Dysarthria Oropharyngeal dysphagia RHEUMATOID FACTOR Routine 04/13/2018 Familial ALS (amyotrophic 7:22 AM TELEPHONE INFORMATION SUPERVISOR lateral sclerosis) (HCC) 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) ([facility]) Dyspnea, unspecified type Dysarthria Oropharyngeal dysphagia SYPHILIS TREPONEMAL IGG Routine 04/13/2018 Familial ALS (amyotrophic 7:22 AM TELEPHONE INFORMATION SUPERVISOR lateral sclerosis) (HCC) 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) (HCC) Dyspnea, unspecified type Dysarthria Oropharyngeal dysphagia SERUM ELECTROPHORESIS Routine 04/13/2018 Familial ALS (amyotrophic 7:22 AM TELEPHONE INFORMATION SUPERVISOR lateral sclerosis) (HCC) 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) (HCC) Dyspnea, unspecified type Dysarthria Oropharyngeal dysphagia THYROID STIMULATING Routine 04/13/2018 Familial ALS (amyotrophic HORMONE 7:22 AM TELEPHONE INFORMATION SUPERVISOR lateral sclerosis) (HCC) 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) (HCC) Dyspnea, unspecified type Dysarthria Oropharyngeal dysphagia VITAMIN D 25 HYDROXY Routine 04/13/2018 Familial ALS (amyotrophic LEVEL 7:22 AM TELEPHONE INFORMATION SUPERVISOR lateral sclerosis) (HCC) 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) (HCC) Dyspnea, unspecified type Dysarthria Oropharyngeal dysphagia VITAMIN B12 LEVEL Routine 04/13/2018 Familial ALS (amyotrophic 7:22 AM TELEPHONE INFORMATION SUPERVISOR lateral sclerosis) (HCC) 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) (HCC) Dyspnea, unspecified type Dysarthria Oropharyngeal dysphagia HIV AG/AB COMBINATION Routine 04/13/2018 Familial ALS (amyotrophic 7:22 AM TELEPHONE INFORMATION SUPERVISOR lateral sclerosis) (HCC) 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 Albumin 3.8 3.5 - 5.0 g/dL [facility] Total bilirubin 0.5 0.0 - 1.2 mg/dL [facility] Bilirubin <0.2 0.0 - 0.3 mg/dL [place] direct [facility] Alkaline 93 35 - 104 U/L [place] phosphatase [facility] Protein 6.9 6.3 - 8.3 g/dL [place] Comment: [facility] 4.6-7.0 g/dL 1 week 4.4-7.6 g/dL 7 months-1year 5.1-7.3 g/dL 1-2 years5.6-7 .5 g/dL >3 years6.0-8 .0 g/dL 18-150 6.3-8.3 g/dL ALT 35 5 - 50 U/L [facility] AST 32 10 - 35 U/L [facility] Specimen Plasma specimen Performing Organization Address City/State/Zipcode Phone Number [facility] DEPARTMENT OF [address] [place] [address] PATHOLOGY AND GENOMIC MEDICINE [address] * General sleep study (04/14/2018 1:18 PM TELEPHONE INFORMATION SUPERVISOR) Specimen Narrative Performed At * EMG general request (04/13/2018 1:04 PM TELEPHONE INFORMATION SUPERVISOR) Impressions Performed At Ms. Jaciel complains of progressive dysarthria, weakness in her [...] At NERVE CONDUCTION AND ELECTROMYOGRAPHY REPORT Neurological [place], [facility]th Floor; [place], [place] [address]; Name: Ana Rosa Grissom Date of Procedure: [...] * Syphilis treponemal IgG (04/13/2018 7:22 AM TELEPHONE INFORMATION SUPERVISOR) Pathologist [facility] Syphilis Non-reactiveComment: Non-reactive [place] treponemal IgG Non-reactive: No serological [facility] evidence of Syphilis infection HOSPITAL Specimen Serum Performing Organization Address City/[facility] Phone Number [facility] [place] [address] PATHOLOGY [address] * Estimated GFR (04/13/2018 7:22 AM TELEPHONE INFORMATION SUPERVISOR) [facility] Estimated GFR 76 mL/min/1.73 m2 [place] Comment: TAOIST [facility] rpretation G1 >=90 Normal or high G2 60-89Mildly decreased [id number] Mildly to moderately decreased [id number] Moderately to severely decreased G4 15-29Severely decreased G5 <15Kidney failure The eGFR was calculated using the Chronic Kidney Disease Epidemiology Collaboration (CKD-EPI) equation. Interpretation is based on recommendations of the National Kidney Foundation-Kidney Disease Outcomes Quality Initiative (NKF-KDOQI) published in 2014. Specimen Plasma specimen Performing Organization Address City/[facility] Facility[facility] Phone Number [facility] DEPARTMENT [place] [phone] PATHOLOGY AND GENOMIC MEDICINE [place] [phone] HOSPITAL * HIV Ag/Ab combination (04/13/2018 7:22 AM TELEPHONE INFORMATION SUPERVISOR) [facility] HIV Ag/Ab Non-reactive Non-reactive [facility] Specimen Blood Performing Organization Address City/State/Zipcode Phone Number [facility] DEPARTMENT OF [address] [place] [id number] PATHOLOGY AND GENOMIC MEDICINE [address] * HTLV I/II Ab with reflex to confirmation (04/13/2018 7:22 AM TELEPHONE INFORMATION SUPERVISOR) [facility] HTLV I/II Ab Negative Negative [facility] Comment: Based on the non-reactive anti-HTLV JACE screen, the HTLV Western Blot is not indicated and therefore not performed. INTERPRETIVE INFORMATION:HTLV I/II Antibodies w/Reflex to Confirm This assay should not be used for blood donor screening, associated re-entry protocols, or for screening Human Cell, Tissues and Cellular and Tissue-Based Products (HCT/P). Performed by [facility], [address] [place] [address] [email or web address], Bentley Sheffield MD - Lab. Director Specimen Serum Performing Organization Address [facility] Phone Number [facility] [address] [place] [facility] [address] [place] [address] * B. burgdorferi Abs total, serum (04/13/2018 7:22 AM TELEPHONE INFORMATION SUPERVISOR) [facility] B. burgdorferi 0.61 0.00 - 1.20 [facility] antibodies Comment: INTERPRETIVE INFORMATION: Borrelia Burgdorferi Abs,Total by JACE 0.99 CHELSIE or Less: ...... Negative: Antibody to B. burgdorferi not detected. 1.00 - 1.20 CHELSIE......... Equivocal: Repeat testing in 10-14 days may be helpful. 1.21 CHELSIE or Greater: ... Positive: Probable presence of antibody to B. burgdorferi detected. Performed by [facility], [address] [place], [place] [id number] [email or web address], Bentley Sheffield MD - Lab. Director Specimen Serum Performing Organization Address [facility] Facility[facility] Phone Number [facility] [address] [place] [address] [facility] [address] [place] [address] * Vitamin D 25 hydroxy level (04/13/2018 7:22 AM TELEPHONE INFORMATION SUPERVISOR) [facility] Vitamin D, 28.0 (L) 30.0 - 150.0 ng/mL [place] 25-hydroxy Comment: TAOIST This assay reports the sum of HOSPITAL 25-hydroxy vitamin D3 and 25-hydroxy vitamin D2. [...] alternative methods. Specimen Blood Performing Organization Address City/[facility]/Zipcode Phone Number [facility] DEPARTMENT OF [address] [place] [address] PATHOLOGY [address] * Partial thromboplastin time, activated (04/13/2018 7:22 AM TELEPHONE INFORMATION SUPERVISOR) [facility] PTT 31.2 23.0 - 36.0 sec [place] Comment: TAOIST PTT therapeutic range for HOSPITAL unfractionated heparin is 61.0-112.0 seconds which corresponds to Anti-Xa 0.3-0.7 U/ml. Specimen Blood Performing Organization Address [facility]/Zipcode Phone Number [facility] DEPARTMENT OF [address] [place] [address] PATHOLOGY AND [facility] TAOIST[address] * Prothrombin time with INR (04/13/2018 7:22 AM TELEPHONE INFORMATION SUPERVISOR) [facility] Prothrombin 12.6 11.5 - 14.5 sec [place] time [facility] INR 1.0 [place] Comment: TAOIST The International Normalized HOSPITAL Ratio (INR) is a therapeutic monitoring tool for patients who are stable on oral anticoagulant therapy. An INR of 2.0-3.0 is suggested for deep vein thrombosis/pulmonary embolism. Specimen Blood Performing Organization Address City/State/Zipcode Phone Number [facility] DEPARTMENT OF [address] [place] [address] PATHOLOGY AND GENOMIC MEDICINE [address] * CBC with platelet and differential (04/13/2018 7:22 AM TELEPHONE INFORMATION SUPERVISOR) WBC 4.29 (L) 4.50 - 11.00 k/uL [facility] RBC 4.54 4.20 - 5.50 m/uL [facility] HGB 13.6 12.0 - 16.0 g/dL [facility] HCT 42.4 37.0 - 47.0 % [facility] MCV 93.4 82.0 - 100.0 fL [facility] MCH 30.0 27.0 - 34.0 pg [facility] MCHC 32.1 31.0 - 37.0 g/dL [facility] RDW - SD 45.4 37.0 - 55.0 fL [facility] MPV 11.3 8.8 - 13.2 fL [facility] Platelet count 217 150 - 400 k/uL [facility] Nucleated RBC 0.00 /100 WBC [facility] Neutrophils 59.5 39.0 - 69.0 % [facility] Lymphocytes 30.5 25.0 - 45.0 % [facility] Monocytes 7.7 0.0 - 10.0 % [facility] Eosinophils 1.4 0.0 - 5.0 % [facility] Basophils 0.7 0.0 - 1.0 % [facility] Immature 0.2Comment: "Immature 0.0 - 1.0 % [place] granulocytes granulocytes" (promyelocytes, TAOIST myelocytes, metamyelocytes) [facility] Specimen Blood Performing Organization Address City/[facility]/Zipcode Phone Number [facility] DEPARTMENT [address] [address] PATHOLOGY AND GENOMIC MEDICINE [address] * Rheumatoid factor (04/13/2018 7:22 AM TELEPHONE INFORMATION SUPERVISOR) Rheumatoid <10 0 - 13 IU/mL [facility] Specimen Plasma specimen Performing Organization Address City/State/Zipcode Phone Number [facility] DEPARTMENT [address] [address] PATHOLOGY AND [facility] MEDICINE [address] * CRP high sensitivity (04/13/2018 7:22 AM TELEPHONE INFORMATION SUPERVISOR) [facility] CRP, high 1.04 mg/L [facility] sensitivity Comment: TAOIST Please note this test is HOSPITAL different from the C-Reactive Protein (CRP) assay. [...] infection Specimen Plasma specimen Performing Organization Address City/[facility] Facility[facility] Phone Number [facility] [place] [address] * Thyroid stimulating hormone (04/13/2018 7:22 AM TELEPHONE INFORMATION SUPERVISOR) [facility] TSH 4.21 (H) 0.27 - 4.20 uIU/mL [facility] Specimen Plasma specimen Performing Organization Address City/State/[facility] Phone Number [facility] [place] [address] PATHOLOGY [facility] MEDICINE [address] * Serum electrophoresis (04/13/2018 7:22 AM TELEPHONE INFORMATION SUPERVISOR) [facility] Protein 7.0 6.3 - 8.3 g/dL [place] Comment: [facility] 4.6-7.0 g/dL 1 week 4.4-7.6 g/dL 7 months-1year 5.1-7.3 g/dL 1-2 years5.6-7 .5 g/dL >3 years6.0-8 .0 g/dL 18-150 6.3-8.3 g/dL [facility] albumin 4.82 4.00 - 5.30 g/dL [facility] SPE alpha 1 0.15 0.10 - 0.25 g/dL [facility] SPE alpha 2 0.67 0.58 - 0.84 g/dL [facility] SPE beta 0.72 0.50 - 1.10 g/dL [facility] SPE gamma 0.63 0.60 - 1.30 g/dL [facility] SPE extended See CommentComment: A normal [place] interpretation serum protein study. [facility] SPE See CommentComment: Lori MAKI interpretation MD Macarena; Fan Narvaez, PhD; Giovanni [facility]SAN[facility] , PhD Specimen Serum Performing Organization Address City/[facility] Facilitycode Phone Number [facility] [place] [address] PATHOLOGY AND [facility] MEDICINE [address] * Folate level (04/13/2018 7:22 AM TELEPHONE INFORMATION SUPERVISOR) [facility] Folate >20.0 4.8 - 24.2 ng/mL [facility] Specimen Serum Performing Organization Address [facility] Phone Number [facility] [place]PART[place] [address] PATHOLOGY AND [facility] MEDICINE [address] * Vitamin B12 level (04/13/2018 7:22 AM TELEPHONE INFORMATION SUPERVISOR) [facility] Vitamin B12 478 211 - 946 pg/mL [place] Comment: TAOIST Significant overlap exists HOSPITAL between normal and deficiency states. However, most patients with deficiencies will have Serum B12 <200 pg/mL. Specimen Serum Performing Organization Address City/[facility] Phone Number [facility] [place] [address] PATHOLOGY AND [facility] MEDICINE [address] * Creatine kinase, total (CPK) (04/13/2018 7:22 AM TELEPHONE INFORMATION SUPERVISOR) [facility] Creatine kinase 69 26 - 192 U/L [facility] Specimen Plasma specimen Performing Organization Address City/[facility] Facility[facility] Phone Number [facility] [place] [address] PATHOLOGY AND [facility] MEDICINE [address] * Lipid panel (04/13/2018 7:22 AM TELEPHONE INFORMATION SUPERVISOR) Cholesterol 227 (H) <200 mg/dL [facility] Triglycerides 99 <150 mg/dL [facility] HDL cholesterol 61 >40 mg/dL [facility] LDL cholesterol 161 (H)Comment: Result <100 mg/dL [place] obtained by direct LDL [facility] Lipid panel [facility] interpretation Comment: TAOIST Total Cholesterol HOSPITAL (mg/dL) <200 Desirable 200-239Borderline -high >=240High Triglycerides [...] mg/dL) Specimen Plasma specimen Performing Organization Address City/State/Zipcode Phone Number [facility] DEPARTMENT OF [address] [place] [address] PATHOLOGY AND GENOMIC MEDICINE [address] [address] * Basic metabolic panel (04/13/2018 7:22 AM TELEPHONE INFORMATION SUPERVISOR) Sodium 142 135 - 148 mEq/L [facility] Potassium 4.1 3.5 - 5.0 mEq/L [facility] Chloride 106 98 - 112 mEq/L [facility] CO2 21 (L) 24 - 31 mEq/L [facility] Anion gap 15@ANIO 7 - 15 mEq/L [facility] BUN 11 8 - 23 mg/dL [facility] Creatinine 0.83 0.50 - 0.90 mg/dL [facility] Glucose 101 (H) 65 - 99 mg/dL [facility] Calcium 10.2 8.8 - 10.2 mg/dL [facility] Specimen Plasma specimen Performing Organization Address City/State/Zipcode Phone Number [facility] DEPARTMENT OF [address] [place] [address] PATHOLOGY AND GENOMIC MEDICINE [facility] [address] [place] [id number] [facility] * Spirometry, MIPS/MEPS (04/13/2018 7:21 AM TELEPHONE INFORMATION SUPERVISOR) FEV1 Pre 2.17 2.02 - 3.23 L [facility] FEV1/FVC % Pre 60.81 68.05 - 87.64 % [facility] FVC Pre 3.56 2.69 - 4.11 L [facility] PEF Pre 3.21 4.63 - 8.16 L/s [facility] FEF 25-75% Pre 1.06 1.09 - 3.64 L/s [facility] FEV1 Predicted 2.62 [facility] FEV1 LLN 2.02 [facility] FEV1 % Pre of 82.5 % [facility] Predicted FVC Predicted 3.40 [facility] FVC LLN 2.69 [facility] FVC % Pre of 104.7 % [facility] Predicted FEV1/FVC % 78 [facility] Predicted FEV1/FVC % LLN 68 [facility] FEV1/FVC % Pre 78.1 % [facility] of Predicted FEF 25-75% 2.36 [facility] Predicted FEF 25-75% LLN 1.09 [facility] FEF 25-75% % 44.6 % [facility] Pre of Predicted PEF Predicted 6.39 [facility] PEF LLN 4.63 [facility] PEF % Pre of 50.2 % [facility] Predicted MIP Predicted 55.51 [facility] MIP LLN 24.88 [facility] MEP Predicted 69.52 [facility] MEP LLN 25.12 [facility] MVV Predicted 96 [facility] MVV LLN 81 [facility] Specimen Narrative Performed At Performing Organization Address City/State/Zipcode Phone Number [facility] [address] [place] [address] after 10/26/2017 Insurance Type Payer Benefit Subscriber ID Effective Phone Address Plan / Dates Group HMO AETNA AETNA xxxxxxxxxx 2018-P HMO,POS,EP resent O, MC/EC Advance Directives Patient has advance care planning documents on file. For more information, molina ramon contact: Theo Saunders [address] [place] [address]
[2018-10-27 07:01] LABS: BASOPHILS % 0.6 % (0.0-1.0); EOSINOPHILS # (AUTO) 0.1 (0.0-0.4); EOSINOPHILS % 1.7 % (0.0-6.0); HEMATOCRIT 39.2 % (34.2-44.1); HEMOGLOBIN 12.9 g/dL (12.0-16.0); LYMPHOCYTES # (AUTO) 0.9 (1.0-3.2); LYMPHOCYTES % 25.4 % (18.0-39.1); MEAN CORPUSCULAR HEMOGLOBIN 30.9 pg (28-32); MEAN CORPUSCULAR HGB CONC 32.9 g/dL (31-35); MEAN CORPUSCULAR VOLUME 93.8 fL (81-99); MONOCYTES # (AUTO) 0.3 (0.2-0.8); MONOCYTES % 7.8 % (4.4-11.3); NEUTROPHILS # (AUTO) 2.3 (2.1-6.9); NEUTROPHILS % 64.2 % (38.7-80.0); PLATELET COUNT 178 x10e3/uL (140-360); RED BLOOD COUNT 4.18 x10e6/uL (3.6-5.1); RED CELL DISTRIBUTION WIDTH 12.4 % (11.7-14.4)
--- NOTE | 2018-10-27 07:05 | NUR ---
SPIRITUAL CARE - Pre-Surgery Assessment: Pt in bed. Pt's at bedside. Pt reported supportive attention from family and friends. Intervention: I provided pastoral presence, hospitality, and sympathetic listening. I acquainted pt with availability of surgical assistant certified while hospitalized. Outcome: Pt expressed appreciation for visit. No need for follow up indicated at this time. SHERRIE Chenlain Spiritual Care Department O: [phone] Pager: [phone] ([phone] number calling from)
[2018-10-27 07:48] LABS: ANION GAP 12.5 mmol/L (8-16); BLOOD UREA NITROGEN 15 mg/dL (7-26); BUN/CREATININE RATIO 18 (6-25); CALCIUM 9.6 mg/dL (8.4-10.2); CARBON DIOXIDE 25 mmol/L (22-29); CHLORIDE 104 mmol/L (98-107); CREATININE, SERUM 0.84 mg/dL (0.57-1.11); EST GLOMERULAR FILTRATION RATE > 60 ML/MIN (60-); GLUCOSE 96 mg/dL (74-118); POTASSIUM 3.5 mmol/L (3.5-5.1); SODIUM 138 mmol/L (136-145)
[2018-10-27] MEDS ORDERED: SODIUM CHLORIDE 0.9% 1000ML 1,000 ML IV SCH (09:24)
[2018-10-27] MEDS ORDERED: PANTOPRAZOLE 40 MG 10ML VIAL IV SCH (09:30)
--- OUTSIDE RECORDS SUMMARY | 2018-10-27 09:51 | XMS REPORT | Clinical Summary ---
Author Author [facility] Address Unknown Phone Unavailable Care Team Providers Care Route Supervisor Name Role Phone Asked, No Pcp PCP [...] Russel Castañeda MD ALS (amyotrophic lateral sclerosis) ([facility]) 08/06/2018 Lab Lab Russel Castañeda MD Toennis, Karen, RN ALS (amyotrophic lateral sclerosis) ([facility]) (Primary Dx) 08/06/2018 Multidisciplina Neurology ry Visit Digna Bruner RN ALS (amyotrophic lateral sclerosis) ([facility]) (Primary Dx) 07/29/2018 Orders Only Neurology Briana Saravia MA 07/13/2018 Telephone General Surgery Jaycee Smith RN Sialorrhea (Primary Dx); ALS (amyotrophic lateral sclerosis) ([facility]) 06/08/2018 Orders Only Neurology Kati Caban MD 06/05/2018 Refill Neurology Russel Castañeda MD Familial ALS (amyotrophic lateral sclerosis) ([facility]) (Primary Dx) 04/15/2018 Procedure visit Neurology Pb Mancera, PhD Memory loss; Motor neuron disease ([facility]) 04/14/2018 Office Visit Neuropsychology Russel Castañeda MD Familial ALS (amyotrophic lateral sclerosis) ([facility]) (Primary Dx) 04/14/2018 Procedure visit Neurology Karolyn Pleitez 04/14/2018 Documentation Karolyn Pleitez 04/14/2018 Documentation Russel Castañeda MD 04/13/2018 Hospital Sleep Medicine Encounter Russel Castañeda MD Familial ALS (amyotrophic lateral sclerosis) ([facility]); 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) ([facility]); Dyspnea, unspecified type; Dysarthria; Oropharyngeal dysphagia 04/13/2018 Procedure visit Neurology Russel Castañeda MD Familial ALS (amyotrophic lateral sclerosis) ([facility]) 04/13/2018 Hospital Pulmonology Encounter Alaina Arboleda Amyotrophic lateral sclerosis ([facility]) (Primary Dx) 04/13/2018 Transcribe Sleep Medicine Orders Farrah Fermin, ORTHODONTIC TECHNICIAN 04/13/2018 Social Work Neurology Farrah Fermin, ORTHODONTIC TECHNICIAN 04/08/2018 Telephone Neurology Jaycee Smith RN Familial ALS (amyotrophic lateral sclerosis) ([facility]) (Primary Dx); 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) ([facility]); Dyspnea, unspecified type; Dysarthria; Oropharyngeal dysphagia 04/02/2018 [...] CDT Respiratory Rate 16 04/15/2018 8:23 AM SOFTWARE TEST TECHNICIAN Oxygen Saturation 100% - Inhaled Oxygen - [...] ALS (amyotrophic lateral 7:25 AM CDT sclerosis) ([facility]) GENERAL SLEEP STUDY Routine 04/14/2018 Amyotrophic lateral 1:18 PM SOFTWARE TEST TECHNICIAN sclerosis ([facility]) EMG Routine 04/13/2018 Familial ALS (amyotrophic 1:04 PM SOFTWARE TEST TECHNICIAN lateral sclerosis) ([facility]) 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) ([facility]) Dyspnea, unspecified type Dysarthria Oropharyngeal dysphagia CRP HIGH SENSITIVITY Routine 04/13/2018 7:22 AM SOFTWARE TEST TECHNICIAN ESTIMATED GFR Routine 04/13/2018 7:22 AM SOFTWARE TEST TECHNICIAN BASIC METABOLIC PANEL Routine 04/13/2018 Familial ALS (amyotrophic 7:22 AM SOFTWARE TEST TECHNICIAN lateral sclerosis) (HCC) 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) (HCC) Dyspnea, unspecified type Dysarthria Oropharyngeal dysphagia HC COMPLETE BLD COUNT Routine 04/13/2018 Familial ALS (amyotrophic W/AUTO DIFF 7:22 AM SOFTWARE TEST TECHNICIAN lateral sclerosis) (HCC) 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) (HCC) Dyspnea, unspecified type Dysarthria Oropharyngeal dysphagia CREATINE KINASE, TOTAL Routine 04/13/2018 Familial ALS (amyotrophic (CPK) 7:22 AM SOFTWARE TEST TECHNICIAN lateral sclerosis) (HCC) 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) (HCC) Dyspnea, unspecified type Dysarthria Oropharyngeal dysphagia FOLATE LEVEL Routine 04/13/2018 Familial ALS (amyotrophic 7:22 AM SOFTWARE TEST TECHNICIAN lateral sclerosis) (HCC) 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) (HCC) Dyspnea, unspecified type Dysarthria Oropharyngeal dysphagia HEPATIC FUNCTION PANEL Routine 04/13/2018 Familial ALS (amyotrophic 7:22 AM SOFTWARE TEST TECHNICIAN lateral sclerosis) (HCC) 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) (HCC) Dyspnea, unspecified type Dysarthria Oropharyngeal dysphagia PROTHROMBIN TIME WITH INR Routine 04/13/2018 Familial ALS (amyotrophic 7:22 AM SOFTWARE TEST TECHNICIAN lateral sclerosis) (HCC) 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) (HCC) Dyspnea, unspecified type Dysarthria Oropharyngeal dysphagia RHEUMATOID FACTOR Routine 04/13/2018 Familial ALS (amyotrophic 7:22 AM SOFTWARE TEST TECHNICIAN lateral sclerosis) (HCC) 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) ([facility]) Dyspnea, unspecified type Dysarthria Oropharyngeal dysphagia SYPHILIS TREPONEMAL IGG Routine 04/13/2018 Familial ALS (amyotrophic 7:22 AM SOFTWARE TEST TECHNICIAN lateral sclerosis) (HCC) 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) (HCC) Dyspnea, unspecified type Dysarthria Oropharyngeal dysphagia SERUM ELECTROPHORESIS Routine 04/13/2018 Familial ALS (amyotrophic 7:22 AM SOFTWARE TEST TECHNICIAN lateral sclerosis) (HCC) 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) (HCC) Dyspnea, unspecified type Dysarthria Oropharyngeal dysphagia THYROID STIMULATING Routine 04/13/2018 Familial ALS (amyotrophic HORMONE 7:22 AM SOFTWARE TEST TECHNICIAN lateral sclerosis) (HCC) 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) (HCC) Dyspnea, unspecified type Dysarthria Oropharyngeal dysphagia VITAMIN D 25 HYDROXY Routine 04/13/2018 Familial ALS (amyotrophic LEVEL 7:22 AM SOFTWARE TEST TECHNICIAN lateral sclerosis) (HCC) 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) (HCC) Dyspnea, unspecified type Dysarthria Oropharyngeal dysphagia VITAMIN B12 LEVEL Routine 04/13/2018 Familial ALS (amyotrophic 7:22 AM SOFTWARE TEST TECHNICIAN lateral sclerosis) (HCC) 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) (HCC) Dyspnea, unspecified type Dysarthria Oropharyngeal dysphagia HIV AG/AB COMBINATION Routine 04/13/2018 Familial ALS (amyotrophic 7:22 AM SOFTWARE TEST TECHNICIAN lateral sclerosis) (HCC) 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 Albumin 3.8 3.5 - 5.0 g/dL [facility] Total bilirubin 0.5 0.0 - 1.2 mg/dL [facility] Bilirubin <0.2 0.0 - 0.3 mg/dL [place] direct [facility] Alkaline 93 35 - 104 U/L [place] phosphatase [facility] Protein 6.9 6.3 - 8.3 g/dL [place] Comment: [facility] 4.6-7.0 g/dL 1 week 4.4-7.6 g/dL 7 months-1year 5.1-7.3 g/dL 1-2 years5.6-7 .5 g/dL >3 years6.0-8 .0 g/dL 18-150 6.3-8.3 g/dL ALT 35 5 - 50 U/L [facility] AST 32 10 - 35 U/L [facility] Specimen Plasma specimen Performing Organization Address City/State/Zipcode Phone Number [facility] DEPARTMENT OF [address] [place] [address] PATHOLOGY AND GENOMIC MEDICINE [address] * General sleep study (04/14/2018 1:18 PM SOFTWARE TEST TECHNICIAN) Specimen Narrative Performed At * EMG general request (04/13/2018 1:04 PM SOFTWARE TEST TECHNICIAN) Impressions Performed At Ms. Jaciel complains of [...] At NERVE CONDUCTION AND ELECTROMYOGRAPHY REPORT Neurological [place], [facility]; [place], [place] [address]; Name: Ana Rosa Grissom Date of Procedure: [...] * Syphilis treponemal IgG (04/13/2018 7:22 AM SOFTWARE TEST TECHNICIAN) Pathologist [facility] Syphilis Non-reactiveComment: Non-reactive [place] treponemal IgG Non-reactive: No serological YAZIDISM evidence of Syphilis infection HOSPITAL Specimen Serum Performing Organization Address City/[facility] Phone Number [facility] [place] [address] PATHOLOGY [address] * Estimated GFR (04/13/2018 7:22 AM SOFTWARE TEST TECHNICIAN) [facility] Estimated GFR 76 mL/min/1.73 m2 [place] Comment: YAZIDISM [facility] rpretation G1 >=90 Normal or high G2 60-89Mildly decreased [id number] Mildly to moderately decreased [id number] Moderately to severely decreased G4 15-29Severely decreased G5 <15Kidney failure The eGFR was calculated using the Chronic Kidney Disease Epidemiology Collaboration (CKD-EPI) equation. Interpretation is based on recommendations of the National Kidney Foundation-Kidney Disease Outcomes Quality Initiative (NKF-KDOQI) published in 2014. Specimen Plasma specimen Performing Organization Address City/[facility] Phone Number [facility] DEPARTMENT [place] [id number] PATHOLOGY AND GENOMIC MEDICINE [place] [phone] HOSPITAL * HIV Ag/Ab combination (04/13/2018 7:22 AM SOFTWARE TEST TECHNICIAN) [facility] HIV Ag/Ab Non-reactive Non-reactive [facility] Specimen Blood Performing Organization Address City/State/Zipcode Phone Number [facility] DEPARTMENT OF [address] [place] [address] PATHOLOGY AND GENOMIC MEDICINE [address] * HTLV I/II Ab with reflex to confirmation (04/13/2018 7:22 AM SOFTWARE TEST TECHNICIAN) [facility] HTLV I/II Ab Negative Negative [facility] Comment: Based on the non-reactive anti-HTLV JACE screen, the HTLV Western Blot is not indicated and therefore not performed. INTERPRETIVE INFORMATION:HTLV I/II Antibodies w/Reflex to Confirm This assay should not be used for blood donor screening, associated re-entry protocols, or for screening Human Cell, Tissues and Cellular and Tissue-Based Products (HCT/P). Performed by [facility], [address] [place] [address] [email or web address], Bentley Sheffield MD - Lab. Director Specimen Serum Performing Organization Address [facility] Phone Number [facility] [address] [facility] [address] [place] [address] * B. burgdorferi Abs total, serum (04/13/2018 7:22 AM SOFTWARE TEST TECHNICIAN) [facility] B. burgdorferi 0.61 0.00 - 1.20 [facility] antibodies Comment: INTERPRETIVE INFORMATION: Borrelia Burgdorferi Abs,Total by JACE 0.99 CHELSIE or Less: ...... Negative: Antibody to B. burgdorferi not detected. 1.00 - 1.20 CHELSIE......... Equivocal: Repeat testing in 10-14 days may be helpful. 1.21 CHELSIE or Greater: ... Positive: Probable presence of antibody to B. burgdorferi detected. Performed by [facility], [address] [place], [place] [id number] [email or web address], Bentley Sheffield MD - Lab. Director Specimen Serum Performing Organization Address [facility] Phone Number [facility] [address] [place] [address] [facility] [address] [place] [address] * Vitamin D 25 hydroxy level (04/13/2018 7:22 AM SOFTWARE TEST TECHNICIAN) [facility] Vitamin D, 28.0 (L) 30.0 - 150.0 ng/mL [place] 25-hydroxy Comment: YAZIDISM This assay reports the sum of HOSPITAL [...] alternative methods. Specimen Blood Performing Organization Address City/[facility]/Zipcode Phone Number [facility] DEPARTMENT OF [address] [place] [address] PATHOLOGY [address] * Partial thromboplastin time, activated (04/13/2018 7:22 AM SOFTWARE TEST TECHNICIAN) [facility] PTT 31.2 23.0 - 36.0 sec [place] Comment: YAZIDISM PTT therapeutic range for HOSPITAL unfractionated heparin is 61.0-112.0 seconds which corresponds to Anti-Xa 0.3-0.7 U/ml. Specimen Blood Performing Organization Address [facility]/Zipcode Phone Number [facility] DEPARTMENT OF [address] [place] [address] PATHOLOGY AND [facility] YAZ[facility]ISM[address] * Prothrombin time with INR (04/13/2018 7:22 AM SOFTWARE TEST TECHNICIAN) [facility] Prothrombin 12.6 11.5 - 14.5 sec [place] time [facility] INR 1.0 [place] Comment: YAZIDISM The International Normalized HOSPITAL Ratio (INR) is a therapeutic monitoring tool for patients who are stable on oral anticoagulant therapy. An INR of 2.0-3.0 is suggested for deep vein thrombosis/pulmonary embolism. Specimen Blood Performing Organization Address City/State/Zipcode Phone Number [facility] DEPARTMENT OF [address] [place] [address] PATHOLOGY AND GENOMIC MEDICINE [address] * CBC with platelet and differential (04/13/2018 7:22 AM SOFTWARE TEST TECHNICIAN) WBC 4.29 (L) 4.50 - 11.00 k/uL [facility] RBC 4.54 4.20 - 5.50 m/uL [facility] HGB 13.6 12.0 - 16.0 g/dL [facility] HCT 42.4 37.0 - 47.0 % [facility] MCV 93.4 82.0 - 100.0 fL [facility] MCH 30.0 27.0 - 34.0 pg [facility] MCHC 32.1 31.0 - 37.0 g/dL [facility] RDW - SD 45.4 37.0 - 55.0 fL [facility] MPV 11.3 8.8 - 13.2 fL [facility] Platelet count 217 150 - 400 k/uL [facility] Nucleated RBC 0.00 /100 WBC [facility] Neutrophils 59.5 39.0 - 69.0 % [facility] Lymphocytes 30.5 25.0 - 45.0 % [facility] Monocytes 7.7 0.0 - 10.0 % [facility] Eosinophils 1.4 0.0 - 5.0 % [facility] Basophils 0.7 0.0 - 1.0 % [facility] Immature 0.2Comment: "Immature 0.0 - 1.0 % [place] granulocytes granulocytes" (promyelocytes, YAZIDISM myelocytes, metamyelocytes) [facility] Specimen Blood Performing Organization Address City/[facility]/Zipcode Phone Number [facility] DEPARTMENT [address] [address] PATHOLOGY AND GENOMIC MEDICINE [address] * Rheumatoid factor (04/13/2018 7:22 AM SOFTWARE TEST TECHNICIAN) Rheumatoid <10 0 - 13 IU/mL [facility] Specimen Plasma specimen Performing Organization Address City/State/Zipcode Phone Number [facility] DEPARTMENT [address] [address] PATHOLOGY AND [facility] MEDICINE [address] * CRP high sensitivity (04/13/2018 7:22 AM SOFTWARE TEST TECHNICIAN) [facility] CRP, high 1.04 mg/L [facility] sensitivity Comment: YAZIDISM Please note this test is HOSPITAL different [...] infection Specimen Plasma specimen Performing Organization Address City/[facility] Phone Number [facility] [place] [address] * Thyroid stimulating hormone (04/13/2018 7:22 AM SOFTWARE TEST TECHNICIAN) [facility] TSH 4.21 (H) 0.27 - 4.20 uIU/mL [facility] Specimen Plasma specimen Performing Organization Address City/State/[facility] Phone Number [facility] [place] [address] PATHOLOGY [facility] MEDICINE [address] * Serum electrophoresis (04/13/2018 7:22 AM SOFTWARE TEST TECHNICIAN) [facility] Protein 7.0 6.3 - 8.3 g/dL [place] Comment: [facility] 4.6-7.0 g/dL 1 week 4.4-7.6 g/dL 7 months-1year 5.1-7.3 g/dL 1-2 years5.6-7 .5 g/dL >3 years6.0-8 .0 g/dL 18-150 6.3-8.3 g/dL [facility] albumin 4.82 4.00 - 5.30 g/dL [facility] SPE alpha 1 0.15 0.10 - 0.25 g/dL [facility] SPE alpha 2 0.67 0.58 - 0.84 g/dL [facility] SPE beta 0.72 0.50 - 1.10 g/dL [facility] SPE gamma 0.63 0.60 - 1.30 g/dL [facility] SPE extended See CommentComment: A normal [place] interpretation serum protein study. [facility] SPE See CommentComment: Lori MAKI interpretation MD Macarena; Fan Narvaez, PhD; Giovanni [facility] , PhD Specimen Serum Performing Organization Address City/[facility] Phone Number [facility] [place] [address] PATHOLOGY AND [facility] MEDICINE [address] * Folate level (04/13/2018 7:22 AM SOFTWARE TEST TECHNICIAN) [facility] Folate >20.0 4.8 - 24.2 ng/mL [facility] Specimen Serum Performing Organization Address [facility] Phone Number [facility] [place] [address] PATHOLOGY AND [facility] MEDICINE [address] * Vitamin B12 level (04/13/2018 7:22 AM SOFTWARE TEST TECHNICIAN) [facility] Vitamin B12 478 211 - 946 pg/mL [place] Comment: YAZIDISM Significant overlap exists HOSPITAL between normal and deficiency states. However, most patients with deficiencies will have Serum B12 <200 pg/mL. Specimen Serum Performing Organization Address City/[facility] Phone Number [facility] [place] [address] PATHOLOGY AND [facility] MEDICINE [address] * Creatine kinase, total (CPK) (04/13/2018 7:22 AM SOFTWARE TEST TECHNICIAN) [facility] Creatine kinase 69 26 - 192 U/L [facility] Specimen Plasma specimen Performing Organization Address City/[facility] Phone Number [facility] [place] [address] PATHOLOGY AND [facility] MEDICINE [address] * Lipid panel (04/13/2018 7:22 AM SOFTWARE TEST TECHNICIAN) Cholesterol 227 (H) <200 mg/dL [facility] Triglycerides 99 <150 mg/dL [facility] HDL cholesterol 61 >40 mg/dL [facility] LDL cholesterol 161 (H)Comment: Result <100 mg/dL [place] obtained by direct LDL [facility] Lipid panel [facility] interpretation Comment: YAZIDISM Total Cholesterol HOSPITAL (mg/dL) <200 Desirable 200-239Borderline [...] specimen Performing Organization Address City/State/Zipcode Phone Number [facility] DEPARTMENT OF [address] [place] [address] PATHOLOGY AND GENOMIC MEDICINE [address] * Basic metabolic panel (04/13/2018 7:22 AM SOFTWARE TEST TECHNICIAN) Sodium 142 135 - 148 mEq/L [facility] Potassium 4.1 3.5 - 5.0 mEq/L [facility] Chloride 106 98 - 112 mEq/L [facility] CO2 21 (L) 24 - 31 mEq/L [facility] Anion gap 15@ANIO 7 - 15 mEq/L [facility] BUN 11 8 - 23 mg/dL [facility] Creatinine 0.83 0.50 - 0.90 mg/dL [facility] Glucose 101 (H) 65 - 99 mg/dL [facility] Calcium 10.2 8.8 - 10.2 mg/dL [facility] Specimen Plasma specimen Performing Organization Address City/State/Zipcode Phone Number [facility] DEPARTMENT OF [address] [place] [address] PATHOLOGY AND GENOMIC MEDICINE [facility] [address] [place] [address] HOSPITAL * Spirometry, MIPS/MEPS (04/13/2018 7:21 AM SOFTWARE TEST TECHNICIAN) FEV1 Pre 2.17 2.02 - 3.23 L [...] At Performing Organization Address City/State/Zipcode Phone Number [facility] [address] [place] [address] after 10/26/2017 Insurance Type Payer Benefit Subscriber ID Effective Phone Address Plan / Dates Group HMO AETNA AETNA xxxxxxxxxx [id number] HMO,POS,EP resent O, MC/EC Advance Directives Patient has advance care planning documents on file. For more information, molina ramon contact: Theo Saunders [address] [place] [address]
--- NOTE | 2018-10-27 10:30 | NUR ---
Pt received from PACU s/p Peg tube placement. Pt is alert and oriented x4. Oriented to staff and surroundings. Encouraged to press call addison if help needed. Fall & aspiration precautions maintained. Call addison within reach. Will monitor
[2018-10-27] MEDS: ONDANSETRON HCL INJ 2MG/ML 2ML 2 MG/ML VIAL IV PRN ×2 (10:36→16:20)
[2018-10-27] MEDS: HYDROMORPHONE 2MG/ML 2 MG/ML ML IV PRN ×3 (10:36→23:46)
[2018-10-27 10:40] VITALS: BP 154/80
[2018-10-27 15:33] VITALS: BP 146/88
[2018-10-27] MEDS: CEFAZOLIN SOD 1 GM/NS 50ML 50 ML IV SCH ×2 (16:11→23:25)
--- NOTE | 2018-10-27 16:50 | NUR ---
Pain scale 3/10. Pt is resting comfortably in bed. Emotional support given. Will monitor
[2018-10-27] MEDS ORDERED: ACETAMINOPHEN/CODEINE 300MG - 30MG TAB PO PRN (17:45)
[2018-10-27] MEDS ORDERED: ACETAMINOPHEN 325 MG TAB PO PRN (17:45)
[2018-10-27] MEDS ORDERED: ONDANSETRON HCL INJ 2MG/ML 2ML 2 MG/ML VIAL IV PRN (17:45)
[2018-10-27] MEDS ORDERED: HYDRALAZINE HCL 20 MG/ML VIAL IV PRN (17:45)
--- NOTE | 2018-10-27 19:00 | NUR ---
received report from day nurse. patient is resting comfortably in bed. bed is in lowest position and call addison is within reach. will continue to monitor patient.
--- NOTE | 2018-10-27 19:09 | NUR ---
Pt resting comfortably in bed. Handoff given to oncoming nurse
[2018-10-27] MEDS ORDERED: LIDOCAINE HCL 2% LOCAL INJ 5 ML SDV VIAL INJ ONE (19:44)
[2018-10-27] MEDS ORDERED: PROPOFOL IV EMULSION 10 MG/ML 20 ML VIAL ONE (19:44)
[2018-10-27] MEDS ORDERED: CEFAZOLIN SOD 1 GM VIAL ONE (19:44)
[2018-10-27 20:00] VITALS: BP 142/74
[2018-10-27] MEDS ORDERED: MELATONIN 5 MG TABLET PO SCH (21:00)
[2018-10-28] VITALS: BP 129/70
[2018-10-28 04:00] VITALS: BP 118/60
--- NOTE | 2018-10-28 06:59 | NUR ---
report given to day nurse. patient is resting comfortably in bed. bed is in lowest position and call addison is within reach.
--- NOTE | 2018-10-28 07:00 | NUR ---
Pt received resting in bed. Encouraged to press call addison if help needed. Emotional support given. Will monitor
[2018-10-28] MEDS ORDERED: FAMOTIDINE 20 MG TAB PO SCH (07:30)
[2018-10-28 07:34] VITALS: BP 125/73
[2018-10-28 08:00] VITALS: BP 125/73
[2018-10-28] MEDS: HYDROMORPHONE 2MG/ML 2 MG/ML ML IV PRN (08:24)
[2018-10-28] MEDS ORDERED: MELATONIN 3 MG TAB PO SCH (09:00)
[2018-10-28] MEDS ORDERED: FOLIC ACID 1 MG TAB PO SCH (09:00)
[2018-10-28] MEDS ORDERED: NIFEDIPINE CR 30 MG TAB PO SCH (09:00)
[2018-10-28 11:12] VITALS: BP 159/78
--- NOTE | 2018-10-28 11:23 | NUR ---
Diet changed to clear liquid. Pt's sister and educated regarding use of PEG tube. Both verbalized understanding of teaching. to do return demonstration at 3pm, then discharge.
[2018-10-28] MEDS ORDERED: DEXTROSE 5% IV SCH (14:00)
--- NOTE | 2018-10-28 15:05 | NUR ---
Pt and given discharge instructions regarding meds, diet, activities, s/s to report, and follow up appointment. Both verbalized understanding of teaching. Pt's was able to do return demonstration regarding tube feed. Refused wheelchair, escorted off unit by tech.
[2018-10-29] MEDS ORDERED: PANTOPRAZOLE SOD 40 MG TABEC PO SCH (09:00)
== END 2018-10-28 13:05 | disposition home or self-care (01) ==
LOC: OR 06:06 → PACU V 09:27 → IMCU 10:08
PROVIDERS: ADMIT Surgery; ATTEND Surgery
DX: G12.21 Amyotrophic lateral sclerosis (principal); Z01.810 Encounter for preprocedural cardiovascular examination; Z01.812 Encounter for preprocedural laboratory examination; Z01.811 Encounter for preprocedural respiratory examination; I10 Essential (primary) hypertension; R13.10 Dysphagia, unspecified; K21.0 Gastro-esophageal reflux disease with esophagitis
CPT/HCPCS: 36415; 43246; 80048; 85025; 96360; 96361; C9113; G0378 ×2; J0690 ×2; J1170 ×2; J2001; J2405; J2704; J7030 ×2